=== PATIENT | male | born 1970 | race African-American/Black ===

== ENCOUNTER 2017-02-26 13:13 | Emergency (ER) | payer SELFPAY | END 2017-02-26 13:45 | disposition home or self-care (01) | LOC: ERS 13:13 | DX: Z04.1 Encounter for examination and observation following transport accident (principal); I45.6 Pre-excitation syndrome; I25.2 Old myocardial infarction; E78.5 Hyperlipidemia, unspecified; I10 Essential (primary) hypertension; F31.9 Bipolar disorder, unspecified; F20.9 Schizophrenia, unspecified; F17.210 Nicotine dependence, cigarettes, uncomplicated; V89.2XXA Person injured in unspecified motor-vehicle accident, traffic, initial encounter | CPT/HCPCS: 99284 ==

== ENCOUNTER 2017-03-03 08:29 | Emergency (ER) | payer OTHER, SELFPAY ==
[2017-03-03] MEDS ORDERED: Ketorolac Tromethamine 30 MG/ML VIAL ONE (09:29)
--- NOTE | 2017-03-03 11:03 | RAD ---
4 VIEWS OF CERVICAL SPINE: Date: 03/03/17 COMPARISON: None. HISTORY: Neck pain. FINDINGS: There is straightening of the normal cervical lordosis. No prevertebral soft tissue swelling is seen . At C4-5, C5-6, and C6-7, there is disc space narrowing with mild anterior osteophyte formation. Open-mouth odontoid view demonstrates a normal appearing dens and C1-2 articulation. Cervical verteb ral body height and alignment appears normal on frontal imaging. IMPRESSION: Degenerative changes within the cervical spine as detailed above. No acute osseous abnormality. If t here are radicular symptoms, a follow-up cervical spine MRI on a nonemergent basis is suggested. POS: BRUNO
--- NOTE | 2017-03-03 11:08 | RAD ---
3 VIEWS LUMBOSACRAL SPINE: Date: 03/03/17 COMPARISON: CT abdomen/pelvis dated 02/15/15. HISTORY: Back injury with pain. FINDINGS: For the purposes of this exam, there are only four non-rib bearing vertebral bodies. These will be l abeled L1-L4 and the first sacral segment will be labeled S1. There is Grade II anterolisthesis of L4 on S1. There appear to be bilateral pars defects. Moderate o steophytes are seen surrounding this disc which has decreased in height. The other vertebral bodies demonstrate normal height and alignment without fracture or subluxation. 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 POS: CORTNEY
== END 2017-03-03 10:37 | disposition home or self-care (01) ==
LOC: ERS 08:29
DX: S39.012A Strain of muscle, fascia and tendon of lower back, initial encounter (principal); I49.9 Cardiac arrhythmia, unspecified; I25.2 Old myocardial infarction; E78.5 Hyperlipidemia, unspecified; F31.9 Bipolar disorder, unspecified; F20.9 Schizophrenia, unspecified; F17.210 Nicotine dependence, cigarettes, uncomplicated; I10 Essential (primary) hypertension; I45.6 Pre-excitation syndrome; Z79.899 Other long term (current) drug therapy; V49.9XXA Car occupant (driver) (passenger) injured in unspecified traffic accident, initial encounter
CPT/HCPCS: 72040; 72100; 96372; J1885

== ENCOUNTER 2017-07-17 00:32 | Emergency (ER) | payer OTHER, SELFPAY ==
[2017-07-17 01:16] LABS: #Eosinphils 0.2 thou/uL (0.0-0.7); #Lymphocytes 1.2 thou/uL (1.20-3.40); #Monocytes 0.5 thou/uL (0.11-0.59); #Neutrophils 4.6 thou/uL (1.40-6.50); %Basophils 0.5 % (0.0-1.0); %Eosinophils 3.1 % (0.0-10.0); %Lymphocytes 18.3 % (21.0-51.0); %Monocytes 8.1 % (0.0-10.0); Hemoglobin 11.9 g/dL (14.0-18.0); Mean Corpuscular HGB CONC 32.4 g/dL (32.0-36.0); Mean Corpuscular Hemoglobin 29.1 pg (27.0-31.0); Mean Corpuscular Volume 89.8 fl (80.0-94.0); Mean Platelet Volume 7.7 fL (7.4-10.4); Platelet Count 163 thou/uL (130-400); RBC Distribution Width 13.5 % (11.5-14.5); White Blood Cell (WBC) Count 6.6 thou/uL (4.8-10.8)
[2017-07-17 01:38] LABS: ALT (SGPT) 27 U/L (8-55); AST (SGOT) 28 U/L (5-34); Albumin 4.1 g/dL (3.5-5.0); Alkaline Phosphatase 56 U/L (40-150); Anion Gap 10 mmol/L (10-20); BUN (Urea Nitrogen) 14 mg/dL (8.9-20.6); Bilirubin, Total 0.3 mg/dL (0.2-1.2); CK (CPK) 690 U/L (30-200); Calc. Creatinine Clearance 0 mL/min (70-130); Calcium 9.2 mg/dL (7.8-10.44); Carbon Dioxide 27 mmol/L (22-29); Chloride 107 mmol/L (98-107); Estimated GFR-MDRD 89; Globulin 2.9 g/dL (2.4-3.5); Glucose 90 mg/dL (70-105); Potassium 3.5 mmol/L (3.5-5.1); Sodium 140 mmol/L (136-145)
[2017-07-17 01:42] LABS: Troponin I Less than 0.010 ng/mL (< 0.028)
[2017-07-17 02:01] LABS: CKMB 9.1 ng/mL (0-6.6)
--- NOTE | 2017-07-17 07:47 | RAD ---
PORTABLE AP CHEST XRAY: DATE: 07/17/17. HISTORY: Left-sided chest pain. COMPARISON: 01/19/17. FINDINGS: Cardiac silhouette and pulmonary vasculature are within normal limits. Thoracic aorta does appear ec tatic but is stable from prior exam. Pulmonary vasculature is within normal limits. The lungs remai n clear. There has been no interval change when compared to the prior exam. IMPRESSION: No acute cardiopulmonary process. POS: CORTNEY
--- NOTE | 2017-07-21 15:44 | EKG ---
Test Reason : Blood Pressure : / mmHG Vent. Rate : 088 BPM Atrial Rate : 088 BPM P-R Int : 178 ms QRS Dur : 096 ms QT Int : 368 ms P-R-T Axes : 060 064 070 degrees QTc Int : 445 ms Normal sinus rhythm Minimal voltage criteria for LVH, may be normal variant Nonspecific T wave abnormality Abnormal ECG No change from 01/2017 Confirmed by WALTER REY D.O. ([id number]), order editor ROSA BELLE ([id number]) on 07/21/2017 3:43:51 PM Referred By: Confirmed By:WALTER REY D.O.
== END 2017-07-17 02:20 ==
LOC: ERS 00:32
DX: R07.9 Chest pain, unspecified (principal); F14.10 Cocaine abuse, uncomplicated; I45.6 Pre-excitation syndrome; I25.2 Old myocardial infarction; E78.5 Hyperlipidemia, unspecified; I10 Essential (primary) hypertension; F32.9 Major depressive disorder, single episode, unspecified; F20.9 Schizophrenia, unspecified; F17.210 Nicotine dependence, cigarettes, uncomplicated; Z71.6 Tobacco abuse counseling
CPT/HCPCS: 36415; 71045; 80053; 82550; 82553; 84484; 85025; 93005; 94760; 99406

== ENCOUNTER 2017-10-04 20:50 | Emergency (ER) | payer OTHER ==
[2017-10-04 21:24] LABS: #Eosinphils 0.2 thou/uL (0.0-0.7); #Lymphocytes 1.2 thou/uL (1.20-3.40); #Monocytes 0.5 thou/uL (0.11-0.59); #Neutrophils 4.6 thou/uL (1.40-6.50); %Basophils 0.4 % (0.0-1.0); %Lymphocytes 18.1 % (21.0-51.0); %Monocytes 7.4 % (0.0-10.0); %Neutrophils 71.1 % (42.0-75.0); Hemoglobin 12.6 g/dL (14.0-18.0); Mean Corpuscular HGB CONC 33.5 g/dL (32.0-36.0); Mean Corpuscular Hemoglobin 28.8 pg (27.0-31.0); Mean Corpuscular Volume 85.9 fl (80.0-94.0); Platelet Count 225 thou/uL (130-400); RBC Distribution Width 12.6 % (11.5-14.5); Red Blood Cell (RBC) Count 4.37 mill/uL (4.70-6.10); White Blood Cell (WBC) Count 6.5 thou/uL (4.8-10.8)
[2017-10-04 21:26] LABS: Bilirubin Negative (Negative); Blood, Urine Negative (Negative); Clarity CLEAR (Clear); Glucose, Urine (Dipstick) Negative (Negative); Leukocyte Negative (Negative); Nitrite Negative (Negative); Protein, Urine (Dipstick) 100 mg/dL (Neg-Trace); Specific Gravity, Urine 1.028 (1.002-1.036); pH, Urine 5.5 (5.0-9.0)
[2017-10-04 21:27] LABS: Bacteria/HPF None Seen HPF (None Seen); Squamous Epithelial 0-3 HPF (0-3)
[2017-10-04 21:28] LABS: Pathc Cast-AUWi Flag 3.77 (0-2.49); Yeast-AUWi Flag 58.1 (0-25.0)
[2017-10-04 21:35] LABS: RBC/HPF None Seen HPF (0-3)
[2017-10-04 21:36] LABS: Amphetamine Not Detected (NotDetected); Barbiturates Screen Not Detected (NotDetected); Benzodiazepine Screen Not Detected (NotDetected); Cocaine Metabolite Screen Detected (NotDetected); Medtox Control Line Valid? VALID (VALID); Medtox Reader # READER 1; Methadone Not Detected (NotDetected); Methamphetamine Detected (NotDetected); Opiate Screen Not Detected (NotDetected); Oxycodone Screen Not Detected (NotDetected); Phencyclidine (PCP) Detected (NotDetected); THC/Cannabinoid Screen Not Detected (NotDetected); Tricyclic Screen Not Detected (NotDetected)
[2017-10-04 21:42] LABS: Acetaminophen Less than 6.0 mcg/mL (10.0-30.0); Alcohol Less than 10 mg/dL (Less than 10); CK (CPK) 817 U/L (30-200); Salicylate Less than 8.0 mg/dL (15.0-30.0)
[2017-10-04 21:43] LABS: ALT (SGPT) 23 U/L (8-55); AST (SGOT) 28 U/L (5-34); Albumin 4.2 g/dL (3.5-5.0); Alkaline Phosphatase 59 U/L (40-150); Anion Gap 11 mmol/L (10-20); BUN (Urea Nitrogen) 16 mg/dL (8.9-20.6); Bilirubin, Total 0.4 mg/dL (0.2-1.2); Calc. Creatinine Clearance 0 mL/min (70-130); Calcium 9.5 mg/dL (7.8-10.44); Carbon Dioxide 25 mmol/L (22-29); Chloride 106 mmol/L (98-107); Estimated GFR-MDRD 67; Glucose 80 mg/dL (70-105); Potassium 3.9 mmol/L (3.5-5.1); Protein, Total 7.2 g/dL (6.0-8.3); Sodium 138 mmol/L (136-145)
[2017-10-04 21:54] LABS: PTT 29.7 SEC (22.9-36.1); Prothrombin Time 13.7 SEC (12.0-14.7)
--- NOTE | 2017-10-06 17:22 | EKG ---
Test Reason : Blood Pressure : / mmHG Vent. Rate : 119 BPM Atrial Rate : 119 BPM P-R Int : 176 ms QRS Dur : 078 ms QT Int : 308 ms P-R-T Axes : 073 081 047 degrees QTc Int : 433 ms Sinus tachycardia Possible Left atrial enlargement Borderline ECG Confirmed by ALISHA REBOLLAR ([id number]), electronic news gathering editor ROSA BELLE ([id number]) on 10/06/2017 5:22:08 PM Referred By: Confirmed By:ALISHA REBOLLAR
== END 2017-10-04 21:47 | disposition left against medical advice (07) ==
LOC: ERS 20:50
DX: R56.9 Unspecified convulsions (principal); I49.9 Cardiac arrhythmia, unspecified; I45.6 Pre-excitation syndrome; E78.5 Hyperlipidemia, unspecified; I10 Essential (primary) hypertension; F20.9 Schizophrenia, unspecified; F31.9 Bipolar disorder, unspecified; F17.210 Nicotine dependence, cigarettes, uncomplicated; I25.2 Old myocardial infarction
CPT/HCPCS: 36415; 80053; 80306; 80307; 81003; 81015; 82550; 85025; 85610; 85730; 93005

== ENCOUNTER 2020-05-17 13:11 | Emergency (ER) | payer OTHER | END 2020-05-17 16:48 | disposition left against medical advice (07) | LOC: ERS 13:11 | DX: Z53.21 Procedure and treatment not carried out due to patient leaving prior to being seen by health care provider (principal) ==

== ENCOUNTER 2021-10-14 07:51 | Emergency (ER) | payer OTHER, SELFPAY ==
[2021-10-14 08:24] LABS: #Basophils 0.1 thou/uL (0.0-0.2); #Eosinphils 0.3 thou/uL (0.0-0.7); #Lymphocytes 1.6 thou/uL (1.20-3.40); #Monocytes 0.6 thou/uL (0.11-0.59); #Neutrophils 4.4 thou/uL (1.40-6.50); %Basophils 0.8 % (0.0-1.0); %Lymphocytes 22.9 % (21.0-51.0); %Neutrophils 63.3 % (42.0-75.0); Hemoglobin 12.8 g/dL (14.0-18.0); Mean Corpuscular HGB CONC 32.1 g/dL (32.0-36.0); Mean Corpuscular Hemoglobin 28.4 pg (27.0-31.0); Mean Corpuscular Volume 88.3 fL (78.0-98.0); Mean Platelet Volume 6.9 fL (7.4-10.4); Platelet Count 245 thou/uL (130-400); RBC Distribution Width 12.5 % (11.5-14.5); Red Blood Cell (RBC) Count 4.51 mill/uL (4.70-6.10); White Blood Cell (WBC) Count 6.9 thou/uL (4.8-10.8)
[2021-10-14 08:48] LABS: ALT (SGPT) 21 U/L (8-55); AST (SGOT) 22 U/L (5-34); Alkaline Phosphatase 80 U/L (40-110); Anion Gap 11 mmol/L (10-20); BUN (Urea Nitrogen) 11 mg/dL (8.9-20.6); Bilirubin, Total 0.6 mg/dL (0.2-1.2); Calc. Creatinine Clearance 0 mL/min (70-130); Calcium 9.3 mg/dL (7.8-10.44); Carbon Dioxide 28 mmol/L (22-29); Chloride 100 mmol/L (98-107); Globulin 4.2 g/dL (2.4-3.5); Glucose 64 mg/dL (70-105); Potassium 3.5 mmol/L (3.5-5.1); Protein, Total 8.2 g/dL (6.0-8.3); Sodium 135 mmol/L (136-145)
== END 2021-10-14 11:05 | disposition home or self-care (01) ==
LOC: ERS 07:51
DX: R60.0 Localized edema (principal); I10 Essential (primary) hypertension
CPT/HCPCS: 36415; 71045; 80053; 83735; 83880; 84484; 85025; 93005

== ENCOUNTER 2021-10-24 11:48 | Emergency (ER) | payer SELFPAY ==
[2021-10-24 13:35] LABS: Bacteria/HPF None Seen HPF (None Seen); Bilirubin Negative (Negative); Blood, Urine Negative (Negative); Clarity Clear (Clear); Glucose, Urine (Dipstick) Normal (Negative); Ketone, Urine Negative (Negative); Leukocyte 250 Leu/uL (Negative); Nitrite Negative (Negative); Protein, Urine (Dipstick) Negative (Neg-Trace); RBC/HPF 0-3 HPF (0-3); Specific Gravity, Urine 1.023 (1.002-1.036); Squamous Epithelial 0-3 HPF (0-3); Urobilinogen Normal mg/dL (Less than 2); WBC/HPF 0-3 HPF (0-3); pH, Urine 6.5 (5.0-9.0)
[2021-10-24 13:38] LABS: #Eosinphils 0.2 thou/uL (0.0-0.7); #Lymphocytes 1.5 thou/uL (1.20-3.40); #Monocytes 0.6 thou/uL (0.11-0.59); #Neutrophils 3.5 thou/uL (1.40-6.50); %Basophils 0.6 % (0.0-1.0); %Lymphocytes 25.3 % (21.0-51.0); %Monocytes 10.8 % (0.0-10.0); %Neutrophils 59.3 % (42.0-75.0); Hemoglobin 11.5 g/dL (14.0-18.0); Mean Corpuscular HGB CONC 31.4 g/dL (32.0-36.0); Mean Corpuscular Hemoglobin 27.5 pg (27.0-31.0); Mean Corpuscular Volume 87.7 fL (78.0-98.0); Mean Platelet Volume 6.8 fL (7.4-10.4); Platelet Count 200 thou/uL (130-400); RBC Distribution Width 12.6 % (11.5-14.5); Red Blood Cell (RBC) Count 4.18 mill/uL (4.70-6.10); White Blood Cell (WBC) Count 5.9 thou/uL (4.8-10.8)
[2021-10-24 13:44] LABS: Amphetamine Detected (NotDetected); Barbiturates Screen Not Detected (NotDetected); Benzodiazepine Screen Not Detected (NotDetected); Cocaine Metabolite Screen Not Detected (NotDetected); Methadone Not Detected (NotDetected); Methamphetamine Detected (NotDetected); Opiate Screen Not Detected (NotDetected); Oxycodone Screen Not Detected (NotDetected); Phencyclidine (PCP) Not Detected (NotDetected); THC/Cannabinoid Screen Detected (NotDetected); Tricyclic Screen Not Detected (NotDetected)
[2021-10-24 14:05] LABS: ALT (SGPT) 18 U/L (8-55); AST (SGOT) 20 U/L (5-34); Albumin 3.7 g/dL (3.5-5.0); Alkaline Phosphatase 77 U/L (40-110); Anion Gap 11 mmol/L (10-20); BUN (Urea Nitrogen) 11 mg/dL (8.9-20.6); Bilirubin, Total 0.3 mg/dL (0.2-1.2); Calc. Creatinine Clearance 0 mL/min (70-130); Calcium 9.3 mg/dL (7.8-10.44); Carbon Dioxide 28 mmol/L (22-29); Chloride 102 mmol/L (98-107); Globulin 3.6 g/dL (2.4-3.5); Glucose 86 mg/dL (70-105); Potassium 3.3 mmol/L (3.5-5.1); Protein, Total 7.3 g/dL (6.0-8.3); Sodium 138 mmol/L (136-145)
== END 2021-10-24 15:01 | disposition home or self-care (01) ==
LOC: ERS 11:48
DX: R60.0 Localized edema (principal); F15.10 Other stimulant abuse, uncomplicated; I10 Essential (primary) hypertension; F17.210 Nicotine dependence, cigarettes, uncomplicated
CPT/HCPCS: 71046; 80053; 80306; 81003; 81015; 83880; 84484; 85025; 93005

== ENCOUNTER 2023-10-23 06:04 | Emergency (ER) | payer OTHER, SELFPAY ==
[2023-10-23] MEDS ORDERED: Lidocaine 1% PF 5 ML VIAL ONE (06:14)
== END 2023-10-23 06:35 | disposition home or self-care (01) ==
LOC: ERS 06:04
DX: L02.416 Cutaneous abscess of left lower limb (principal); I10 Essential (primary) hypertension; F17.210 Nicotine dependence, cigarettes, uncomplicated; Z55.6 Problems related to health literacy
CPT/HCPCS: 27301; 99283

== ENCOUNTER 2023-10-27 23:44 | Inpatient (IN) | payer OTHER ==
[2023-10-28 00:53] LABS: #Basophils 0.04 10x3/uL (0.0-0.2); %Basophils 0.5 % (0.0-1.0); %Eosinophils 3.4 % (0.0-10.0); %Lymphocytes 18.7 % (21.0-51.0); %Monocytes 9.4 % (0.0-10.0); %Neutrophils 67.7 % (42.0-75.0); Hematocrit 33.6 % (42.0-52.0); Hemoglobin 10.8 g/dL (14.0-18.0); Mean Corpuscular HGB CONC 32.1 g/dL (32.0-36.0); Mean Corpuscular Hemoglobin 27.6 pg (27.0-31.0); Mean Corpuscular Volume 85.7 fL (78.0-98.0); Mean Platelet Volume 9.6 fL (7.4-10.4); Platelet Count 237 10x3/uL (130-400); RBC Distribution Width 13.9 % (11.5-14.5); Red Blood Cell (RBC) Count 3.92 mill/uL (4.70-6.10)
[2023-10-28 01:09] LABS: ALT (SGPT) 36 U/L (8-55); AST (SGOT) 37 U/L (5-34); Albumin 3.1 g/dL (3.5-5.0); Alkaline Phosphatase 69 U/L (40-110); Anion Gap 12 mmol/L (10-20); BUN (Urea Nitrogen) 13 mg/dL (8.4-25.7); Bilirubin, Total 0.4 mg/dL (0.2-1.2); Calc. Creatinine Clearance 0 mL/min (70-130); Calcium 9.8 mg/dL (7.8-10.44); Carbon Dioxide 27 mmol/L (22-29); Chloride 104 mmol/L (98-107); Estimated GFR 101; Globulin 4.2 g/dL (2.4-3.5); Glucose 95 mg/dL (70-105); Potassium 3.6 mmol/L (3.5-5.1); Protein, Total 7.3 g/dL (6.0-8.3); Sodium 139 mmol/L (136-145)
[2023-10-28] MEDS ORDERED: Cefepime 2 GM VIAL ONE (04:40)
[2023-10-28] MEDS ORDERED: Sodium Chloride 0.9% 100 ML ONE (04:40)
[2023-10-28] MEDS ORDERED: Ondansetron PF 4 MG/2 ML Vial IVP PRN (05:02)
[2023-10-28] MEDS ORDERED: Ondansetron ODT 4 MG TAB PO PRN (05:02)
[2023-10-28] MEDS ORDERED: HYDROcodone/Acetaminophen 5/325 mg Tablet PO PRN ×2 (05:02)
[2023-10-28] MEDS ORDERED: Ketorolac Tromethamine 30 MG (1 mL) VIAL IVP PRN (05:26)
[2023-10-28 06:01] VITALS: BMI 28.0
[2023-10-28] MEDS: Vancomycin (BATCH) 2 GM in Premix 1 BAG IVPB SCH (06:21)
[2023-10-28] MEDS: Furosemide 40 MG (4 mL) VIAL SLOW IVP SCH (06:33)
[2023-10-28] MEDS ORDERED: Iopamidol-370 76% 500 ML MDV (1 ML CHARGE) ONE (07:05)
[2023-10-28 12:00] VITALS: BMI 28.0
[2023-10-28] MEDS: Cefepime 2 GM in Sodium Chloride 0.9% 100 ML IVPB SCH (16:52)
[2023-10-28] MEDS: Vancomycin (BATCH) 1.5 GM in Premix 1 BAG IVPB SCH (17:44)
[2023-10-28] MEDS: Tamsulosin HCl 0.4 MG CAP PO SCH (17:44)
[2023-10-29] MEDS: Vancomycin (BATCH) 1.5 GM/300 ML BAG ONE (01:06)
[2023-10-29 06:02] LABS: Bacteria/HPF None Seen HPF (None Seen); Bilirubin Negative (Negative); Blood, Urine Negative (Negative); CAUTI Indications for Culture Dysuria,urgency,freq; Clarity Clear (Clear); Glucose, Urine (Dipstick) Normal (Negative); Ketone, Urine Negative (Negative); Leukocyte Negative Leu/uL (Negative); Nitrite Negative (Negative); Protein, Urine (Dipstick) Negative (Neg-Trace); RBC/HPF 0-3 HPF (0-3); Specific Gravity, Urine 1.017 (1.002-1.036); Squamous Epithelial 0-3 HPF (0-3); Urobilinogen Normal mg/dL (Less than 2); WBC/HPF 0-3 HPF (0-3); pH, Urine 6.5 (5.0-9.0)
[2023-10-29 06:04] LABS: Urine Culture Reflex No No
[2023-10-29 06:56] LABS: #Basophils 0.03 10x3/uL (0.0-0.2); %Basophils 0.5 % (0.0-1.0); %Eosinophils 4.6 % (0.0-10.0); %Lymphocytes 27.3 % (21.0-51.0); %Monocytes 9.6 % (0.0-10.0); %Neutrophils 57.8 % (42.0-75.0); Hematocrit 32.5 % (42.0-52.0); Hemoglobin 10.6 g/dL (14.0-18.0); Mean Corpuscular HGB CONC 32.6 g/dL (32.0-36.0); Mean Corpuscular Volume 82.9 fL (78.0-98.0); Mean Platelet Volume 9.9 fL (7.4-10.4); Platelet Count 248 10x3/uL (130-400); RBC Distribution Width 13.7 % (11.5-14.5); Red Blood Cell (RBC) Count 3.92 mill/uL (4.70-6.10)
[2023-10-29 07:10] LABS: Vancomycin, Random 29.8 ug/mL (See Comment)
[2023-10-29 07:11] LABS: Anion Gap 10 mmol/L (10-20); BUN (Urea Nitrogen) 9 mg/dL (8.4-25.7); Calc. Creatinine Clearance 149 mL/min (70-130); Calcium 8.8 mg/dL (7.8-10.44); Carbon Dioxide 26 mmol/L (22-29); Chloride 102 mmol/L (98-107); Estimated GFR 107; Glucose 82 mg/dL (70-105); Potassium 3.3 mmol/L (3.5-5.1); Sodium 135 mmol/L (136-145)
[2023-10-29] MEDS ORDERED: Polyethylene Glycol 3350 17 GM Packet PO SCH (07:30)
[2023-10-29] MEDS: Tamsulosin HCl 0.4 MG CAP PO SCH (09:57)
[2023-10-29] MEDS: Potassium Chloride 20 MEQ TAB PO SCH (09:57)
[2023-10-29] MEDS: Carvedilol 6.25 MG TAB PO SCH (17:48)
[2023-10-29] MEDS: Vancomycin (BATCH) 1.5 GM in Premix 1 BAG IVPB SCH (20:55)
[2023-10-29] MEDS: Simvastatin 5 MG TAB PO SCH (20:55)
[2023-10-30 04:11] LABS: #Basophils 0.03 10x3/uL (0.0-0.2); %Basophils 0.5 % (0.0-1.0); %Eosinophils 4.3 % (0.0-10.0); %Lymphocytes 31.7 % (21.0-51.0); %Monocytes 10.2 % (0.0-10.0); %Neutrophils 53.1 % (42.0-75.0); Hematocrit 32.9 % (42.0-52.0); Hemoglobin 10.8 g/dL (14.0-18.0); Mean Corpuscular HGB CONC 32.8 g/dL (32.0-36.0); Mean Corpuscular Hemoglobin 27.7 pg (27.0-31.0); Mean Corpuscular Volume 84.4 fL (78.0-98.0); Mean Platelet Volume 9.4 fL (7.4-10.4); Platelet Count 259 10x3/uL (130-400); RBC Distribution Width 13.5 % (11.5-14.5)
[2023-10-30 04:30] LABS: Anion Gap 12 mmol/L (10-20); BUN (Urea Nitrogen) 9 mg/dL (8.4-25.7); Calc. Creatinine Clearance 142 mL/min (70-130); Calcium 8.8 mg/dL (7.8-10.44); Carbon Dioxide 25 mmol/L (22-29); Chloride 101 mmol/L (98-107); Estimated GFR 105; Glucose 79 mg/dL (70-105); Potassium 3.9 mmol/L (3.5-5.1); Sodium 134 mmol/L (136-145)
[2023-10-30] MEDS: Amlodipine 10 MG TAB PO SCH (08:37)
[2023-10-30] MEDS: Clopidogrel Bisulfate 75 MG TAB PO SCH (08:38)
[2023-10-30 14:43] VITALS: BP 140/97; TEMP 97.8
== END 2023-10-30 15:09 | disposition home or self-care (01) | DRG 603 ==
LOC: ERS 23:44 → T4-B 10-28 04:04 → OBSVTOIN 10-28 09:36
PROVIDERS: ADMIT Student in an Organized Health Care Education/Training Program; ATTEND Internal Medicine
DX: L03.116 Cellulitis of left lower limb (principal); I10 Essential (primary) hypertension; N40.0 Benign prostatic hyperplasia without lower urinary tract symptoms; S71.102A Unspecified open wound, left thigh, initial encounter; F12.90 Cannabis use, unspecified, uncomplicated; D64.9 Anemia, unspecified; L08.89 Other specified local infections of the skin and subcutaneous tissue; G47.33 Obstructive sleep apnea (adult) (pediatric); Z79.899 Other long term (current) drug therapy; Z88.8 Allergy status to other drugs, medicaments and biological substances
CPT/HCPCS: 36415; 80048; 80053; 80202; 81001; 83605; 85025; 87040; 96375; 97139; G0378; J0692; J1940; J3370; J3490; Q9967